=== PATIENT | female | born 1940 | race Asian ===

== ENCOUNTER 2016-12-09 02:34 | Emergency (ER) | payer MEDICARE ==
[~2016-12-09] VITALS: Ht 154.9 cm; Wt 61.2 kg
[2016-12-09 02:30] VITALS: BP 157/61
[~2016-12-09 02:34] MED LIST: UNOBMED
--- NOTE | 2016-12-09 02:42 | Emergency Room Report ---
History of Present Illness General Chief Complaint: Dizziness Source: Patient, Family Member, EMS Present Illness HPI Is a 76-year-old Polish speaking female who presents with chief complaint of dizziness. She has a past medical history of hypertension diabetes. Around midnight she was going to the bathroom and she felt dizzy. She described as room spinning. Worse with looking to either left or right. No loss of consciousness. No diaphoresis. Garrison nauseous. Never had this problem before. Now with headache also. Denies any chest pain. Denies any focal deficit. Allergies: Coded Allergies: No Known Allergies (Unverified , 12/09/16) Patient History Past Medical History: see triage record, old chart reviewed, DM, HTN Past Surgical History: other Pertinent Family History: none Social History: Denies: smoking Now: No Immunizations: other Reviewed Nursing Documentation: PMH: Agreed, PSxH: Agreed Nursing Documentation-PMH Hx Hypertension: Yes Review of Systems Eye: Denies: blurred vision, eye pain ENT: Denies: ear pain, nose congestion, throat swelling Respiratory: Denies: cough, shortness of breath Cardiovascular: Denies: chest pain, palpitations Gastrointestinal: Denies: abdominal pain, diarrhea, nausea, vomiting Musculoskeletal: Denies: back pain, joint pain Skin: Denies: rash Neurological: Reports: dizziness, Denies: headache, numbness Endocrine: Denies: increased thirst, increased urine Hematologic/Lymphatic: Denies: easy bruising All Other Systems: negative except mentioned in HPI Physical Exam Vital Signs Date Time Temp Pulse Resp B/P Pulse Ox O2 Delivery O2 Flow Rate FiO2 12/09/16 02:22 97.9 72 16 157/61 97 Room Air vital signs hypertension Sp02 EP Interpretation: reviewed, normal General Appearance: well appearing, no apparent distress, alert Head: normocephalic, atraumatic Eyes: bilateral eye EOMI, bilateral eye PERRL ENT: hearing grossly normal, normal pharynx Neck: full range of motion, supple, no meningismus Respiratory: chest non-tender, lungs clear, normal breath sounds Cardiovascular #1: regular rate, rhythm, no murmur Gastrointestinal: normal bowel sounds, non tender, no mass, no organomegaly, no bruit, non-distended Musculoskeletal: back normal, gait/station normal, normal range of motion Psychiatric: mood/affect normal Skin: warm/dry Medical Decision Making Diagnostic Impression: Primary Impression: Dizziness Additional Impressions: Vertigo Hypertension Qualified Codes: I10 - Essential (primary) hypertension ER Course Present with dizziness and vertigo symptoms. She felt better now. No evidence of TIA or CVA. No evidence of VBI. No infectious cause. She felt much better now. She was to go home. Lab Results Impression labs unremarkable EKG Diagnostic Results Rate: normal Rhythm: NSR ST Segments: no acute changes Rhythm Strip Diag. Results EP Interpretation: yes Rate: 70 Rhythm: NSR, no PVC's, no ectopy Chest X-Ray Diagnostic Results EP Interpretation: Yes Findings: no consolidation, no effusion, no pneumothorax, no acute cardiopulmonary disease Number of Views: 1 CT/MRI/US Diagnostic Results CT/MRI/US Diagnostic Results : Imaging Test Ordered: CT head Impression negative per radiologist Last Vital Signs Date Time Temp Pulse Resp B/P Pulse Ox O2 Delivery O2 Flow Rate FiO2 12/09/16 02:30 97.9 70 15 157/61 99 Room Air Status: improved Disposition: HOME, SELF-CARE Condition: Stable Scripts Meclizine Hcl* (MECLIZINE*) 25 Mg Tablet 25 MG ORAL THREE TIMES A DAY, #30 TAB Prov: MARIAH HECK M.D. 12/09/16 Patient Instructions: Vertigo Additional Instructions: Followup your DrCandelaria in 2-3 days. Return if symptom worsen. MARIAH HECK M.D. Dec 09, 2016 02:42
[2016-12-09] MEDS ORDERED: LORazepam Inj 2mg/ml 1ml IV ONE (02:45)
[2016-12-09 03:29] LABS: APPEARANCE,URINE CLEAR; EOSINOPHILS % (AUTO) 0.8 % (0.0-3.0); KETONES,URINE NEGATIVE (NEGATIVE); LEUKOCYTE ESTERASE ,URINE NEGATIVE (NEGATIVE); LYMPHOCYTES % (AUTO) 14.1 % (20.0-45.0); MEAN CORPUSCULAR HEMOGLOBIN 31.4 PG (27.0-31.0); MEAN CORPUSCULAR HGB CONC 33.5 G/DL (32.0-36.0); MEAN CORPUSCULAR VOLUME 94 FL (80-99); MEAN PLATELET VOLUME 6.6 FL (6.5-10.1); MONOCYTES % (AUTO) 5.2 % (1.0-10.0); NEUTROPHILS % (AUTO) 78.9 % (45.0-75.0); NITRITE,URINE NEGATIVE (NEGATIVE); PH,URINE 8 (4.5-8.0); PLATELET COUNT 203 K/UL (150-450); PROTEIN,URINE 2+ (NEGATIVE); RED BLOOD COUNT 4.92 M/UL (4.20-5.40); RED CELL DISTRIBUTION WIDTH 12.1 % (11.6-14.8); UROBILINOGEN,URINE NORMAL MG/DL (0.0-1.0); WHITE BLOOD COUNT 9.9 K/UL (4.8-10.8)
[2016-12-09 03:30] VITALS: BP 133/52
[2016-12-09] MEDS ORDERED: Ketorolac 30mg Inj IV ONE (03:30)
[2016-12-09 03:39] LABS: SQUAMOUS EPITHELIAL CELL,UR FEW /LPF (NONE/OCC); WBC,URINE 0-2 /HPF (0 - 2)
[2016-12-09 03:42] LABS: TROPONIN I < 0.30 ng/mL (<=0.30)
[2016-12-09 03:45] LABS: ALANINE AMINOTRANSFERASE 26 U/L (3-33); ALBUMIN/GLOBULIN RATIO 1.4 (1.0-2.7); ANION GAP 16 (5-15); ASPARTATE AMINO TRANSFERASE 32 U/L (5-40); CALCIUM 9.7 mg/dL (8.6-10.2); CARBON DIOXIDE 27 mEQ/L (20-30); CHLORIDE 100 mEQ/L (98-107); CREATININE 1.2 mg/dL (0.5-0.9); HEMOLYSIS 3; POTASSIUM 3.7 mEQ/L (3.4-4.9); SODIUM 143 mEQ/L (135-145)
[2016-12-09] MEDS ORDERED: MECLIZINE HCL25 MG ORAL (04:03)
[2016-12-09 04:15] VITALS: BP 135/60
--- NOTE | 2016-12-09 11:00 | Diagnostic Imaging Report ---
Indications: Dizziness Technique: Spiral acquisitions obtained through the brain. Angled axial and coronal 5 x 5 mm slices were reconstructed. Total dose length product 1439 mGycm. CTDI vol(s) 70 mGy Comparison: None Findings: Ventricles and extra-axial CSF spaces are normal for age. There is minimal periventricular deep white matter chronic ischemic change. No acute hemorrhage or edema. No mass effect. Normal ku-white differentiation. Intact calvarium. Visualized orbits are unremarkable. There is minimal ethmoid sinus mucosal thickening. Impression: Negative for acute intracranial bleed or mass effect Minimal periventricular deep white matter ischemic change Minimal sinus disease This agrees with the preliminary interpretation provided overnight by [facility]. The CT scanner at [facility] is accredited by the [employer] and the scans are performed using protocols designed to limit radiation exposure to as low as reasonably achievable to attain images of sufficient resolution adequate for diagnostic evaluation.
--- NOTE | 2016-12-09 14:13 | Diagnostic Imaging Report ---
Indication: Chest pain Technique: One view of the chest Comparison: none Findings: No acute infiltrates, effusions, or congestion. Tortuous calcified aorta. Normal heart size. Upper mediastinum unremarkable. Impression: No acute process.
--- NOTE | 2017-01-10 03:26 | Cardiology Report ---
APPROVED REPORT EKG Measurement Heart [id number] Normal sinus rhythm Normal ECG
== END 2016-12-09 04:15 | disposition home or self-care (01) ==
LOC: EDBD 02:34 → EMR 02:42
DX: R42 Dizziness and giddiness (principal); I10 Essential (primary) hypertension; E11.9 Type 2 diabetes mellitus without complications
CPT/HCPCS: 36415; 70450; 71010; 80053; 81001; 84484; 85025; 93005; 96361; 96374; 96375; 99284; J1885